=== PATIENT | female | born 1965 | race Two or more races ===

== ENCOUNTER 2019-01-29 09:13 | Emergency (ER) | payer OTHER ==
[~2019-01-29] VITALS: Ht 172.7 cm; Wt 68.2 kg
[2019-01-29 11:15] VITALS: BP 119/61
== END 2019-01-29 11:36 | disposition home or self-care (01) ==
LOC: EMS 09:13
DX: L03.116 Cellulitis of left lower limb (principal); R05 Cough

== ENCOUNTER 2019-02-21 15:26 | Emergency (ER) | payer OTHER ==
[~2019-02-21] VITALS: Ht 172.7 cm; Wt 64.5 kg
[2019-02-21] MEDS ORDERED: KETOROLAC TROMETHAMINE 60 MG/2 ML VIAL IM ONE (16:00)
[2019-02-21 16:44] VITALS: BP 110/57
== END 2019-02-21 17:13 | disposition home or self-care (01) ==
LOC: EMS 15:27
DX: M77.9 Enthesopathy, unspecified (principal); M79.89 Other specified soft tissue disorders